=== PATIENT | male | born 1945 | race Caucasian/White ===

== ENCOUNTER 2016-07-19 08:18 | Emergency (ER) | payer BC ==
[~2016-07-19] VITALS: Ht 177.8 cm; Wt 79.2 kg
[~2016-07-19 08:18] MED LIST: ASPI81TA28 PO; AZEL137S6 NAE; DUTA0.5C PO; EZET10TA63 PO; FLAX1CAP11 PO; METO25TA56 PO; NUTR1TAB4 PO; OMEGCAP2 PO
[2016-07-19 08:24] VITALS: TEMP 36.4; Ht 177.8 cm; Wt 79.2 kg
[2016-07-19] MEDS ORDERED: SILVER NITR/POTASSIUM NITRATE APPLICATOR ONE (08:36)
[2016-07-19] MEDS ORDERED: GLUCOCIL PO (08:51)
[2016-07-19 09:00] VITALS: BP 139/88; PULSE 58; O2SAT 99
[2016-07-19] MEDS ORDERED: AMOX500C3 PO (16:16)
--- NOTE | 2016-07-19 17:34 | EMERGENCY ROOM VISIT NOTE ---
ED Visit Note First contact with patient: 08:23 CHIEF COMPLAINT: Nosebleed HISTORY OF PRESENT ILLNESS: This 71-year-old white male patient developed sudden onset of a nosebleed about 2 hours ago. This started when he woke up this morning. The bleeding has not stopped with pressure. There was no trauma to the nose and no recent upper respiratory infection. The patient is not on Coumadin or other anticoagulants. No difficulty breathing, no cough, no headache or sore throat. His accompanies him today. He is unsure if it is from the right or left nares. He thinks it was bleeding from both. No recent history of nosebleeds. REVIEW OF SYSTEMS: Throat: No sore throat, dysphagia, or hoarseness. Neurological: No headache, new changes in mental status, vertigo, focal weakness, numbness. Cardiac: No chest pain, diaphoresis, dyspnea on exertion, orthopnea, pedal edema, or palpitations. Respiratory: No cough, change in sputum, wheezes, hemoptysis, shortness of breath, or stridor. General: No fever or chills, fatigue, loss of appetite, or significant recent weight gain or loss. PMH: Significant for hypertension SOCIAL HISTORY: Patient lives at home. Previous surgeries: None Current medications: Reviewed and filed in patient's chart Allergies: Percocet Family history: Noncontributory PHYSICAL EXAM: Vital Signs: Reviewed Nurse's notes. Hypertensive. Afebrile. General appearance: The patient is sitting upright holding the nose and is somewhat agitated. The patient is alert, oriented, coherent, and cooperative. There is no tachypnea or dyspnea. Skin: Warm and dry with good turgor. No rashes or lesions. No ecchymosis or erythema. The patient is not diaphoretic. No abrasions. HEENT: Normocephalic atraumatic. Eyes PERRLA, EOMI. No conjunctiva or scleral injection. Nares patent on the right without turbinate enlargement. No significant drainage. No epistaxis. Left nostril reveals diffuse punctate bleeding across the septum, specifically at Kiesselbach's plexus. There is some blood in the posterior nasal cavity as well. Oropharynx without erythema or exudate. Uvula midline, oral mucosa moist. No lesions present. Minor blood in the posterior pharynx as well. Lymphatics are palpated without anterior or posterior chain enlargement or tenderness. The lungs were clear to auscultation, and the heart sounds regular and of normal quality. EMERGENCY DEPARTMENT COURSE: Options for treatment were discussed. Risks and benefits were also discussed. Patient elected to proceed with chemical cautery. A silver nitrate stick was used to cauterize the medial septum. Patient was monitored for a few minutes. No further bleeding occurred. He tolerated this procedure well. Wound was coated with triple antibiotic ointment gently. He will do this daily for the next several days. DIAGNOSIS: Anterior Epistaxis DISCHARGE INSTRUCTIONS & TREATMENT: Patient has were educated regarding today's findings. Conservative care measures were discussed. Apply Firm pressure on the nose for 10 minutes if bleeding recurs. If you are unable to get it stopped after that, return to the emergency department for further exam and treatment. Blow the nose very gently if at all over the next 3 days. Don' t put any objects into the nose. Follow-up with his PCP as needed. Current/Historical Medications Scheduled Amoxicillin (Amoxil), 500 MG PO TID Aspirin (Aspirin Ec), 81 MG PO QAM Azelastine Hcl (Astelin), 2 SPRAY DARLYN QAM Dutasteride (Avodart), 0.5 MG PO QAM Ezetimibe (Zetia), 10 MG PO QAM Flaxseed (Linseed) (Flax Seed Oil), 1 CAP PO BID Metoprolol Tartrate (Lopressor) (Lopressor), 25 MG PO BID Nutritional Supplements (Theralith Xr), 2 TAB PO BID [place]-3 Fatty Acids (Fish Oil), 2 CAP PO BID [Glucocil], 1 TAB PO BID Allergies Coded Allergies: Oxycodone (Verified Allergy, Unknown, RASH, 11/12/15) Vital Signs Date Time Temp Pulse Resp B/P Pulse Ox O2 Delivery O2 Flow Rate FiO2 07/19/16 09:00 58 18 139/88 99 07/19/16 08:24 36.4 54 16 148/95 95 Room Air Medications Administered Medications (Trade) Dose Ordered Sig/Kane Route Start Time Stop Time Status Last Admin Dose Admin Silver Nitrate/ Potassium Nitrate (Silver Nitrate Applicators) 1 pkt STK-MED ONCE .ROUTE 07/19/16 08:36 07/19/16 08:37 DC 07/19/16 08:38 1 PKT Departure Information Impression Primary Impression: Anterior epistaxis Dispostion Home / Self-Care Condition FAIR Forms WORK / SCHOOL INSTRUCTIONS, HOME CARE DOCUMENTATION FORM, IMPORTANT VISIT INFORMATION Patient Instructions My [facility] Additional Instructions Apply triple antibiotic ointment in your nose to times a day for the next 5 days Avoid blowing the nose for the next 3 days Do not stick anything inside the nostril other than to apply the antibiotic ointment Follow-up with your PCP or return to the ED for any other concerns
== END 2016-07-19 09:02 | disposition home or self-care (01) ==
LOC: C.EDB 08:19
DX: R04.0 Epistaxis (principal); I10 Essential (primary) hypertension; Z79.01 Long term (current) use of anticoagulants; Z79.82 Long term (current) use of aspirin; Z79.899 Other long term (current) drug therapy

== ENCOUNTER 2016-07-19 12:32 | Emergency (ER) | payer BC ==
[~2016-07-19] VITALS: Ht 177.8 cm; Wt 79.5 kg
[~2016-07-19 12:32] MED LIST changes: +GLUCOCIL PO
[2016-07-19 12:36] VITALS: TEMP 36.4; Ht 177.8 cm; Wt 79.5 kg
[2016-07-19] MEDS ORDERED: SILVER NITR/POTASSIUM NITRATE APPLICATOR ONE (13:39)
--- NOTE | 2016-07-19 14:39 | EMERGENCY ROOM VISIT NOTE ---
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 I was involved in the patient's care and did evaluate the patient myself. I was involved in the care throughout the ER stay. The patient presents for epistaxis, he had been here earlier and had cautery, he was rebleeding so presents back for reassessment. The patient will have a Rhino pack placed. He will be discharged on antibiotics to return in a few days to have the pack removed.
[2016-07-19] MEDS ORDERED: LIDOCAINE 4% W/AFRIN NASAL SOLN 4ML EXT STA (14:43)
[2016-07-19 16:13] VITALS: BP 152/101; PULSE 61; O2SAT 96
[2016-07-19] MEDS ORDERED: AMOX500C3 PO (16:16)
--- NOTE | 2016-07-19 16:34 | EMERGENCY ROOM VISIT NOTE ---
ED Visit Note First contact with patient: 12:46 CHIEF COMPLAINT: Recurrent Nosebleed HISTORY OF PRESENT ILLNESS: This 71-year-old white male patient returns for a recurrent nosebleed. I saw him this morning and cauterized his left nares. He went home and was doing fine. The nose started to bleed again. He returned for reevaluation. The bleeding has not stopped with pressure. There was no trauma to the nose. Please see this mornings dictation for further history. REVIEW OF SYSTEMS: Unchanged from this morning PMH: Unchanged from this morning Previous surgeries: Unchanged from this morning SOCIAL HISTORY: Patient lives at home with his . Current medications: Unchanged Allergies: Percocet PHYSICAL EXAM: Vital Signs: Reviewed Nurse's notes. Mildly hypertensive at 162/ 102. General appearance: The patient is sitting upright holding the nose. The patient is alert, oriented, coherent, and cooperative. There is no tachypnea or dyspnea. Skin:Warm and dry with good turgor. No rashes or lesions. No ecchymosis or erythema. The patient is not diaphoretic. No abrasions. HEENT: Exam of the nostrils reveals continued mild oozing from the left nares. There is no bleeding in the right side. The cauterized area remains fairly dry. There are a few punctate areas of bleeding through. These are also appears to have some minor bleeding posteriorly. I'm not able to fully visualize as to where it is coming from. EMERGENCY DEPARTMENT COURSE: Informed consent was obtained to cauterize. A silver nitrate stick was used to close the few areas anteriorly. No further bleeding was noted from those sites. Nasal clips were applied for several minutes. He was reevaluated. He had no further bleeding anteriorly. There remains some minor bleeding posteriorly. He was fine when reclining but had continued bleeding when I sat him up. Because of this, a 4.5 cm rapid Rhino was inserted. Nose was anesthetized using 4% lidocaine spray beforehand. Unfortunately the balloon was defective and would not hold air consistently. It had a slow leak. This was removed and traded for a 5.5 cm rapid Rhino. The patient had effective hemostasis. DIAGNOSIS: Recurrent Epistaxis DISCHARGE INSTRUCTIONS & TREATMENT: Patient was educated regarding today's findings. He will leave the balloon in place for 2 days. Return on Wednesday for packing removal. He was prescribed amoxicillin 500 mg 3 times a day 7 days to prevent sinus infection. Firm pressure on the nose for 10 minutes if bleeding recurs. If you are unable to get it stopped after that, return to the emergency department for further exam and treatment. Blow the nose very gently if at all over the next 2 days. Don't put any objects into the nose or pull the packing out. he should have his blood pressure rechecked by his PCP later this week. Patient was seen in conjunction with Dr. Perez, who also evaluated the patient and concurred with today's diagnosis and treatment plan. Current/Historical Medications Scheduled Amoxicillin (Amoxil), 500 MG PO TID Aspirin (Aspirin Ec), 81 MG PO QAM Azelastine Hcl (Astelin), 2 SPRAY DARLYN QAM Dutasteride (Avodart), 0.5 MG PO QAM Ezetimibe (Zetia), 10 MG PO QAM Flaxseed (Linseed) (Flax Seed Oil), 1 CAP PO BID Metoprolol Tartrate (Lopressor) (Lopressor), 25 MG PO BID Nutritional Supplements (Theralith Xr), 2 TAB PO BID [place]-3 Fatty Acids (Fish Oil), 2 CAP PO BID [Glucocil], 1 TAB PO BID Allergies Coded Allergies: Oxycodone (Verified Allergy, Unknown, RASH, 11/12/15) Vital Signs Date Time Temp Pulse Resp B/P Pulse Ox O2 Delivery O2 Flow Rate FiO2 07/19/16 16:13 61 20 152/101 96 Room Air 07/19/16 14:27 86 18 162/102 98 07/19/16 12:36 36.4 47 18 154/91 97 Room Air Departure Information Impression Primary Impression: Epistaxis, recurrent Dispostion Home / Self-Care Prescriptions Amoxicillin (AMOXIL) 500 Mg Cap 500 MG PO TID for 7 Days, #21 CAP Prov: Jose Barboas,P.A. 07/19/16 Referrals Sam Anna M.D. (PCP) Forms WORK / SCHOOL INSTRUCTIONS, HOME CARE DOCUMENTATION FORM, TYLENOL USE, IMPORTANT VISIT INFORMATION Patient Instructions My [facility] [employer] Additional Instructions return on wednesday for pack. ing removal
== END 2016-07-19 16:25 | disposition home or self-care (01) ==
LOC: C.EDB 12:33 → C.EDD 16:25
DX: R04.0 Epistaxis (principal); Z79.82 Long term (current) use of aspirin; Z79.899 Other long term (current) drug therapy

== ENCOUNTER 2016-07-21 09:08 | Emergency (ER) | payer BC ==
[~2016-07-21] VITALS: Ht 177.8 cm; Wt 78.4 kg
[~2016-07-21 09:08] MED LIST changes: +AMOX500C3 PO
[2016-07-21 09:12] VITALS: TEMP 36.4; Ht 177.8 cm; Wt 78.4 kg
--- NOTE | 2016-07-21 09:24 | EMERGENCY ROOM VISIT NOTE ---
History Report prepared by Deniz: Dori Katz Under the Supervision of: Dr. Mandeep Perez M.D. First contact with patient: 09:19 Chief Complaint: PACKING REMOVAL Stated Complaint: REMOVAL OF PACKING-BLOODY NOSE Nursing Triage Summary: Patient here to have packing removed from left nare History of Present Illness The patient is a 71 year old male who presents to the Emergency Room for removal of packing from left naris. He states that he began to experience epistaxis 2 days ago. The patient was seen in the ED 2 days ago for epistaxis. He was sent home with Rhino Rocket packaging. The patient states at the time the patient's nose would not stop bleeding. He did cough up red blood. The patient takes a baby Aspirin a day. He denies any other symptoms at this time. 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 Review of Systems See HPI for pertinent positives & negatives. A total of 10 systems reviewed and were otherwise negative. Past Medical & Surgical Medical Problems: (1) Hernia Family History Cancer Diabetes mellitus Heart disease Hypertension Social History Smoking Status: Never Smoker Alcohol Use: occasionally Marital Status: Housing Status: lives with family Occupation Status: retired Current/Historical Medications Scheduled Amoxicillin (Amoxil), 500 MG PO TID Aspirin (Aspirin Ec), 81 MG PO QAM Dutasteride (Avodart), 0.5 MG PO QAM Ezetimibe (Zetia), 10 MG PO QAM Flaxseed (Linseed) (Flax Seed Oil), 1 CAP PO BID Metoprolol Tartrate (Lopressor) (Lopressor), 25 MG PO BID Nutritional Supplements (Theralith Xr), 2 TAB PO BID [place]-3 Fatty Acids (Fish Oil), 2 CAP PO BID [Glucocil], 1 TAB PO BID Miscellaneous Medications Azelastine HCl-Fluticasone Pro (Dermacinrx Azenase Oziel 137 & 50 Mcg/Act) Allergies Coded Allergies: Oxycodone (Verified Allergy, Unknown, RASH, 07/21/16) Physical Exam Vital Signs Date Time Temp Pulse Resp B/P Pulse Ox O2 Delivery O2 Flow Rate FiO2 07/21/16 10:18 54 18 131/83 95 07/21/16 09:12 36.4 50 18 142/92 97 Room Air Physical Exam GENERAL: Patient is awake, alert, and in no acute distress. Patient is resting comfortably and showing no signs of anxiety EYES: The conjunctivae are clear. The pupils are round and reactive. EARS, NOSE, MOUTH AND THROAT: Rhino rocket in left naris, no blood noted in posterior pharynx. Mucous membranes are moist tongue is midline NECK: The neck is nontender and supple. RESPIRATORY: Normal respiratory effort is noted there is no evidence of wheezing rhonchi or rales CARDIOVASCULAR: Regular rate and rhythm noted there no murmurs rubs or gallops normal S1 normal S2 GASTROINTESTINAL: The abdomen is soft. Bowel sounds are present in all quadrants. Abdomen is nontender MUSCULOSKELETAL/EXTREMITIES: There is no evidence of gross deformity full range of motion is noted in the hips and shoulders SKIN: There is no obvious evidence of any rash. There are no petechiae, pallor or cyanosis noted. NEUROLOGIC: Patient is awake alert and oriented x3. Medical Decision & Procedures ED Course 0919: The patient was evaluated in room A3. A complete history and physical examination were performed. 1014: Upon reevaluation, the patient is hemodynamically stable. I discussed the results and treatment plan with the patient. He verbalized agreement of the treatment plan. He was discharged home. Medical Decision Differential diagnosis: Etiologies such as anterior epistaxis, coagulopathy, traumatic injury, fracture , septal hematoma, posterior epistaxis as well as other pathologies were entertained. Nursing notes reviewed. Patient's previous electronic medical records reviewed. The patient is a 71-year-old male who presented to the emergency department for an evaluation of epistaxis which was treated 2 days ago in our department with cauterization an anterior packing. The patient noted some bleeding that he "coughed up" from the back of his throat but no active bleeding was appreciated by the patient or and physical exam. The packing was removed without difficulty. The cauterization site was noted and was clear area there was no active bleeding noted. The patient was observed in the emergency department for sure. At that time and no bleeding started. He was given epistaxis discharge instructions as well as a nasal clip. He was instructed to follow-up with his family doctor for further evaluation but return to the emergency department immediately if symptoms change worsen or the need arises. Impression Primary Impression: Encounter for removal of nasal packing Scribe Attestation The scribe's documentation has been prepared under my direction and personally reviewed by me in its entirety. I confirm that the note above accurately reflects all work, treatment, procedures, and medical decision making performed by me. Departure Information Dispostion Home / Self-Care Referrals Sam Anna M.D. (PCP) Forms HOME CARE DOCUMENTATION FORM, IMPORTANT VISIT INFORMATION, WORK / SCHOOL INSTRUCTIONS Patient Instructions My [facility], [facility] Additional Instructions Call your family to schedule a follow-up appointment. Continue to use a pressure across her nose as instructed if the bleeding restarts. Return to the emergency department immediately if symptoms change worsen or the need arises.
[2016-07-21] MEDS ORDERED: AZEL1.5M (09:41)
[2016-07-21 10:18] VITALS: BP 131/83; PULSE 54; O2SAT 95
== END 2016-07-21 10:19 | disposition home or self-care (01) ==
LOC: C.EDB 09:09 → C.EDA 10:19
DX: Z48.00 Encounter for change or removal of nonsurgical wound dressing (principal); Z80.9 Family history of malignant neoplasm, unspecified; Z83.3 Family history of diabetes mellitus; Z82.49 Family history of ischemic heart disease and other diseases of the circulatory system; Z79.82 Long term (current) use of aspirin; Z79.899 Other long term (current) drug therapy

== ENCOUNTER → 2016-12-18 | Outpatient (CLI) | payer BC ==
[~2016-12-18] MED LIST changes: -AMOX500C3 PO; +AZEL1.5M; -AZEL137S6 NAE
== END | disposition home or self-care (01) ==
LOC: C.LAB 13:58
PROVIDERS: ATTEND Urology
DX: Z12.5 Encounter for screening for malignant neoplasm of prostate (principal)